=== PATIENT | male | born 1970 | race Caucasian/White ===

== ENCOUNTER 2016-11-01 09:53 | Emergency (ER) | payer OTHER | END 2016-11-01 14:30 | disposition home or self-care (01) | LOC: ER1 09:53 | DX: S42.031A Displaced fracture of lateral end of right clavicle, initial encounter for closed fracture (principal); K21.9 Gastro-esophageal reflux disease without esophagitis; F17.200 Nicotine dependence, unspecified, uncomplicated; Z88.5 Allergy status to narcotic agent; W18.09XA Striking against other object with subsequent fall, initial encounter; Y92.29 Other specified public building as the place of occurrence of the external cause; Z79.899 Other long term (current) drug therapy | CPT/HCPCS: 73030; 73200; 96374; 96375; 99284; J2270; J2405 ==

== ENCOUNTER → 2021-01-25 | Outpatient (CLI) | payer OTHER ==
[~2021-01-25] MED LIST: DOXYCYCLINE HY100 MG PO; NORCO 7.5-3251 EACH PO; PHENERGAN 12.12.5 M1 PO; PHENERGAN 25 MG25 M1 PO; PREDNISONE 50 M50 MG PO; TORADOL 10 MG T10 MG PO
== END ==
LOC: CT 01-20 10:30
DX: R94.2 Abnormal results of pulmonary function studies (principal); J43.9 Emphysema, unspecified
CPT/HCPCS: 71250; Q9967

== ENCOUNTER → 2022-03-21 | Outpatient (CLI) | payer OTHER | LOC: KOH-I 09:58 | DX: F17.210 Nicotine dependence, cigarettes, uncomplicated (principal) | CPT/HCPCS: 71271 ==